=== PATIENT | male | born 1945 | race Caucasian/White ===

== ENCOUNTER → 2016-07-20 | Outpatient (CLI) | payer MEDICARE | LOC: RAD 08:48 | PROVIDERS: ATTEND Physician Assistant | DX: J44.9 Chronic obstructive pulmonary disease, unspecified (principal); R42 Dizziness and giddiness; R05 Cough | CPT/HCPCS: 70470; 71260; 93880 ==

== ENCOUNTER → 2016-07-29 | Outpatient (CLI) | payer MEDICARE | LOC: RAD 10:57 | PROVIDERS: ATTEND Internal Medicine | DX: C34.2 Malignant neoplasm of middle lobe, bronchus or lung (principal) | CPT/HCPCS: 78815; A9552 ==